=== PATIENT | female | born 1940 | race Caucasian/White ===

== ENCOUNTER 2017-06-18 22:02 | Inpatient (IN) | payer OTHER ==
[~2017-06-18] VITALS: Ht 153.7 cm; Wt 94.1 kg
[~2017-06-18 22:02] MED LIST: ASPIR 8181 M1 PO; CIPRO500 MG PO; IRON325 M1 PO; LIPITOR20 MG PO
[2017-06-19 06:02] VITALS: BP 132/72
[2017-06-19 10:24] VITALS: BP 123/73
[2017-06-19 15:35] VITALS: BP 136/74
[2017-06-19 20:13] VITALS: BP 117/73
[2017-06-20] VITALS (7 sets, daily range): BP systolic 109–143; BP diastolic 59–86
[2017-06-21 03:53] VITALS: BP 141/75
[2017-06-21 08:10] VITALS: BP 141/73
[2017-06-21] MEDS ORDERED: SENNA PLUS TAB1 EACH PO (09:57)
[2017-06-21] MEDS ORDERED: ELIQUIS2.5 MG PO (09:58)
[2017-06-21] MEDS ORDERED: OXYCODONE HCL5 MG PO (09:58)
[2017-06-21] MEDS ORDERED: Salonpas 4% Patch TD (09:58)
== END 2017-06-21 13:25 | DRG 470 ==
LOC: ENRESERV 22:02 → 2SOUTH 06-19 05:09 → 3WEST 06-19 09:54 → 2SOUTH 06-19 11:53 → 3WEST 06-21 13:25
PROC: 0SRD0J9 Replacement of Left Knee Joint with Synthetic Substitute, Cemented, Open Approach (ICD-10-PCS; principal; 2017-06-19)
DX: M17.12 Unilateral primary osteoarthritis, left knee (principal); Z96.652 Presence of left artificial knee joint; Z68.39 Body mass index [BMI] 39.0-39.9, adult; E66.9 Obesity, unspecified; R73.01 Impaired fasting glucose; F41.9 Anxiety disorder, unspecified; I25.10 Atherosclerotic heart disease of native coronary artery without angina pectoris; K21.9 Gastro-esophageal reflux disease without esophagitis; E78.2 Mixed hyperlipidemia; G89.29 Other chronic pain
CPT/HCPCS: C1713; J0131; J1100; J1885; J2405; J7050; J7120; L1820; Q0175; S0020